=== PATIENT | female | born 1940 | race Caucasian/White ===

== ENCOUNTER 2017-11-18 10:10 | Outpatient (CLI) | payer MEDICARE ==
--- NOTE | 2017-11-18 13:41 | MRI ---
MRI LEFT FOOT WITHOUT CONTRAST: INDICATIONS: History of plantar fasciitis and mid foot pain. COMPARISON: None. TECHNIQUE: Multiplanar, multisequence MR images were obtained of the left foot without IV contrast. FINDINGS: A small amount of edema is seen within the medial heel pad, as well as subjacent to the medial planta r fascial band, which can be seen with mild plantar fasciitis. The intrinsic foot musculature appear s within normal limits. The visualized aspects of the peroneal tendons, the medial ankle flexor tend ons, the Achilles tendon, and the extensor tendons appear within normal limits. The Lisfranc ligamen t is intact. There is no evidence to suggest fracture. No osteochondral defect is seen involving th e talar dome. The visualized aspects of the extrinsic ligaments of the ankle appear intact. The sin us tarsi has a normal signal intensity. IMPRESSION: Mild plantar fasciitis. POS: [facility]
== END 2017-11-18 10:11 | disposition home or self-care (01) ==
LOC: SCSMRI 10:10
PROVIDERS: ATTEND Podiatrist
DX: M79.672 Pain in left foot (principal); G89.29 Other chronic pain; M72.2 Plantar fascial fibromatosis

== ENCOUNTER 2019-04-04 09:46 | Outpatient (CLI) | payer MEDICARE ==
--- NOTE | 2019-04-04 10:26 | RAD ---
EXAM: Chest PA and lateral: HISTORY: Dyspnea COMPARISON: 04/10/2016 FINDINGS: Heart: Normal cardiac silhouette Aorta: Atherosclerosis Pulmonary vessels: Normal Costophrenic angles: Costophrenic angles are clear. Lungs: No consolidation or masses. Pneumothorax: No pneumothorax Osseous structures: No osseous abnormalities IMPRESSION: No acute cardiopulmonary process. Atherosclerosis
== END 2019-04-04 09:47 | disposition home or self-care (01) ==
LOC: RAD 09:46
PROVIDERS: ATTEND Internal Medicine Critical Care Medicine
DX: R06.00 Dyspnea, unspecified (principal); I70.0 Atherosclerosis of aorta
CPT/HCPCS: 71046

== ENCOUNTER 2019-04-29 13:38 | Outpatient (CLI) | payer MEDICARE ==
--- NOTE | 2019-04-29 14:17 | RAD ---
Exam: 3 views lumbar spine HISTORY: Low back pain. Left leg pain times months COMPARISON: none FINDINGS: 5 lumbar type vertebra. Lumbar spine vertebral body height is maintained. No fracture Atherosclerosis of a nonaneurysmal aorta Moderate loss of disc space height at L4-L5 Spondylolisthesis: Neutral: L2-L3: 3.8 mm of anterolisthesis. Flexion: L1-L2: 3.1 mm retrolisthesis L2-L3: 2.5 mm of anterolisthesis L5-S1: 3.1 mm of anterolisthesis. Extension: L2-L3: 2.8 mm of anterolisthesis. IMPRESSION: Spondylolisthesis as detailed above.
== END 2019-04-29 13:39 | disposition home or self-care (01) ==
LOC: TBSIIMAG 13:38
PROVIDERS: ATTEND Neurological Surgery
DX: M54.16 Radiculopathy, lumbar region (principal); M43.16 Spondylolisthesis, lumbar region; M43.17 Spondylolisthesis, lumbosacral region
CPT/HCPCS: 72100

== ENCOUNTER 2021-04-30 11:03 | Outpatient (CLI) | payer MEDICARE | END 2021-04-30 11:04 | disposition home or self-care (01) | LOC: SCSMRI 11:03 | PROVIDERS: ATTEND Orthopaedic Surgery | DX: M47.26 Other spondylosis with radiculopathy, lumbar region (principal); M48.061 Spinal stenosis, lumbar region without neurogenic claudication; M51.16 Intervertebral disc disorders with radiculopathy, lumbar region | CPT/HCPCS: 72148 ==